=== PATIENT | female | born 1955 | race Caucasian/White ===

== ENCOUNTER 2023-02-18 13:56 | Emergency (ER) | payer MEDICARE, OTHER ==
[~2023-02-18] VITALS: Ht 167.6 cm; Wt 76.2 kg
--- OUTSIDE RECORDS SUMMARY | 2023-02-18 14:02 | XMS ---
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 Hai has no Care Guidelines for this patient. Ayah VISIT COUNT (12 MO.) 1 [facility] TOTAL 1 NOTE: Visits indicate total known visits. ED/C VISIT TRACKING (12 MO.) 02/18/2023 14:00 [facility] [place] TYPE: Emergency COMPLAINT: - FALL, POST SURGICAL CHECK INPATIENT VISIT TRACKING (12 MO.) 12/02/2022 05:58 [facility] [place] SY TYPE: Surgery DIAGNOSES: - Other spondylosis with myelopathy, cervical region - Radiculopathy, lumbar region - Spinal stenosis, cervical region [email or web address]
[2023-02-18 19:10] VITALS: BP 158/96
== END 2023-02-18 19:10 | disposition home or self-care (01) ==
LOC: ED 13:56
DX: M54.50 Low back pain, unspecified (principal); E11.9 Type 2 diabetes mellitus without complications; W19.XXXA Unspecified fall, initial encounter; Z88.2 Allergy status to sulfonamides
CPT/HCPCS: 72040; 72070; 72100; 99283-25